=== PATIENT | male | born 1950 | race Caucasian/White ===

== ENCOUNTER → 2020-01-31 09:02 | Outpatient (CLI) | payer MEDICARE, OTHER, SELFPAY ==
[2020-01-31 10:48] LABS: PSA,Total- Diagnostic 0.83 ng/mL (0.0-4.0)
== END ==
PROVIDERS: PCP Internal Medicine; Referring Provider Nurse Practitioner Adult Health; Visit Provider Nurse Practitioner Adult Health
DX: N40.1 Benign prostatic hyperplasia with lower urinary tract symptoms (principal)
CPT/HCPCS: 36415; 84153

== ENCOUNTER → 2021-02-09 08:48 | Outpatient (CLI) | payer MEDICARE, OTHER, SELFPAY ==
[2021-02-09 10:37] LABS: PSA,Total - Annual Screen 0.86 ng/mL (0.00-4.00)
== END ==
PROVIDERS: PCP Internal Medicine; Referring Provider Nurse Practitioner Adult Health; Visit Provider Nurse Practitioner Adult Health
DX: Z12.5 Encounter for screening for malignant neoplasm of prostate (principal)
CPT/HCPCS: 36415; 84153; G0103

== ENCOUNTER → 2022-03-23 | Outpatient (CLI) | payer MEDICARE, OTHER, SELFPAY | END | disposition home or self-care (01) | LOC: LAB 09:02 | PROVIDERS: PCP Internal Medicine; Referring Provider Urology; Visit Provider Urology | DX: Z12.5 Encounter for screening for malignant neoplasm of prostate (principal) | CPT/HCPCS: 36415; 84153; G0103 ==

== ENCOUNTER → 2023-02-21 | Outpatient (CLI) | payer MEDICARE, OTHER, SELFPAY ==
[2023-02-21 11:26] LABS: PSA,Total - Annual Screen 1.16 ng/mL (0.00-4.00)
== END | disposition home or self-care (01) ==
LOC: LAB 09:36
PROVIDERS: PCP Internal Medicine; Referring Provider Urology; Visit Provider Urology
DX: Z12.5 Encounter for screening for malignant neoplasm of prostate (principal)
CPT/HCPCS: 36415; 84153; G0103

== ENCOUNTER 2025-04-01 18:33 | Emergency (ER) | payer MEDICARE, OTHER, SELFPAY ==
[2025-04-01 18:34] VITALS: BP 125/82; PULSE 77; RESP 16; TEMP 36.8; O2SAT 99; BMI 30.2
== END 2025-04-01 19:46 | disposition left against medical advice (07) ==
LOC: ED 19:48
PROVIDERS: PCP Internal Medicine
DX: K08.89 Other specified disorders of teeth and supporting structures (principal)